=== PATIENT | male | born 1960 | race Hispanic/Latino ===

== ENCOUNTER 2019-02-07 11:55 | Outpatient (CLI) | payer OTHER ==
--- NOTE | 2019-02-07 15:12 | MRI ---
MRI ABDOMEN WITH AND WITHOUT IV CONTRAST: (MR [id number]) Date: 02/07/19 HISTORY: Crohn's disease. FINDINGS: Comparison made with MRI abdomen dated 04/01/05. Hemangiomas in the left and right lobes of the liver are again seen. There is cholelithiasis. The spl een measures 13.0 cm in length. The pancreas and adrenal glands appear normal. There are bilateral re nal cysts. No free fluid or lymphadenopathy seen in the abdomen. There is no evidence of aneurysmal d ilatation of the abdominal aorta. The bone marrow signal is normal. There is thickening of the wall of the distal aspect of the terminal ileum with abnormal postcontrast enhancement. The proximal small bowel loops are not abnormally dilated. No abnormally loculated flui d collections are noted to suggest abscess formation. IMPRESSION: 1. Findings indicative of active Crohn's disease involving the terminal ileum. 2. Hepatic hemangiomas. 3. Cholelithiasis. 4. Renal cysts. 5. Borderline splenomegaly. POS: [facility]
== END 2019-02-07 11:56 | disposition home or self-care (01) ==
LOC: MRI 11:55
PROVIDERS: ATTEND Internal Medicine Gastroenterology
DX: K50.00 Crohn's disease of small intestine without complications (principal); D18.03 Hemangioma of intra-abdominal structures; K80.20 Calculus of gallbladder without cholecystitis without obstruction; N28.1 Cyst of kidney, acquired; R16.1 Splenomegaly, not elsewhere classified
CPT/HCPCS: 74183; J1610